=== PATIENT | male | born 1970 | race Hispanic/Latino ===

== ENCOUNTER 2019-11-29 20:56 | Emergency (ER) | payer BC ==
[~2019-11-29] VITALS: Ht 177.8 cm; Wt 113.4 kg
[2019-11-29] MEDS ORDERED: MORPHINE SULFATE INJ 4 MG/ML INJ 1ML IV STA (21:08)
[2019-11-29] MEDS ORDERED: ONDANSETRON HCL INJ 2MG/ML 2ML 2 MG/ML VIAL IV ONE (21:15)
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
[2019-11-29] MEDS ORDERED: MUPIROCIN 2% OINT 22 GM TUBE TOP ONE (21:45)
--- NOTE | 2019-11-29 21:59 | Diagnostic Imaging Report ---
X-ray right elbow 3 views HISTORY: Pain. COMPARISON: None available. FINDINGS: Bones: No acute displaced fracture. Questionable focal nondisplaced cortical fracture of the lateral humeral condyle although this could be a calcified enthesophyte. Joints: The joint spaces are well-maintained. Soft tissues: Soft tissue swelling along the lateral and dorsal elbow and proximal forearm. IMPRESSION: Soft tissue swelling along the lateral and dorsal elbow and proximal forearm. Olecranon bursitis is possible. Questionable focal nondisplaced cortical fracture of the lateral humeral condyle although this could be a calcified enthesophyte. Signed by: Wayne Longoria DO on 11/29/2019 9:56 PM
[2019-11-29] MEDS ORDERED: IBUPROFEN600 MG PO (22:02)
[2019-11-29] MEDS ORDERED: TYLENOL # 31 EA PO (22:02)
--- NOTE | 2019-11-29 22:08 | Diagnostic Imaging Report ---
EXAMINATION: CXR 2 VIEW - HOPD INDICATION: Fall, pain COMPARISON: None FINDINGS: TUBES and LINES: None. LUNGS: Normal lung volumes. Lungs are clear. No consolidations. PLEURA: No pleural effusion or pneumothorax. HEART AND MEDIASTINUM: The cardiomediastinal silhouette is unremarkable. BONES AND SOFT TISSUES: Minimally displaced fractures of lateral aspects of right ribs 5-8. Degenerative changes. Soft tissues are unremarkable. UPPER ABDOMEN: No free air under the diaphragm. IMPRESSION: Minimally displaced fractures of lateral aspects of right ribs 5-8. Signed by: Wayne Longoria DO on 11/29/2019 10:05 PM
[2019-11-29] MEDS ORDERED: HYDROCODONE/APAP 5MG-325MG TAB ONE ×2 (22:12→22:17)
[2019-11-29] MEDS ORDERED: KETOROLAC TROMETHAMINE 60 MG/2 ML VIAL ONE (22:12)
[2019-11-29] MEDS ORDERED: BACITRACIN ZINC 0.9GM TP ONE (22:12)
[2019-11-29] MEDS ORDERED: ONDANSETRON HCL 4 MG ORAL DISINTEGRATING TAB ONE ×2 (22:12→22:17)
[2019-11-29] MEDS ORDERED: KETOROLAC TROMETHAMINE 30 MG/ML VIAL IM ONE (22:15)
[2019-11-29] MEDS ORDERED: HYDROCODONE/APAP 5MG-325MG TAB PO ONE (22:15)
[2019-11-29] MEDS ORDERED: ONDANSETRON HCL 4 MG ORAL DISINTEGRATING TAB PO ONE (22:15)
[2019-11-29] MEDS ORDERED: TETANUS/DIPHTHERIA TOX ADULT 0.5 ML SYR ONE (22:24)
[2019-11-29] MEDS ORDERED: TETANUS/DIPHTHERIA TOX ADULT 0.5 ML SYR IM ONE (22:30)
== END 2019-11-29 22:55 | disposition home or self-care (01) ==
LOC: FSED 20:56
DX: S22.31XA Fracture of one rib, right side, initial encounter for closed fracture (principal); S42.454A Nondisplaced fracture of lateral condyle of right humerus, initial encounter for closed fracture; S50.11XA Contusion of right forearm, initial encounter; V19.3XXA Pedal cyclist (driver) (passenger) injured in unspecified nontraffic accident, initial encounter; Y93.55 Activity, bike riding; Y92.488 Other paved roadways as the place of occurrence of the external cause
CPT/HCPCS: 29125; 71046; 73080; 80053; 85025; 90471; 90714; 99283; J1885; Q0162

== ENCOUNTER 2020-07-23 14:16 | Emergency (ER) | payer BC ==
[~2020-07-23] VITALS: Ht 177.8 cm; Wt 108.9 kg
[~2020-07-23 14:16] MED LIST: IBUPROFEN600 MG PO; TYLENOL # 31 EA PO
[2020-07-23] MEDS ORDERED: NITROGLYCERIN 2% OINT 1 GM PKT TOP ONE (14:45)
[2020-07-23] MEDS ORDERED: HYDRALAZINE HCL 20 MG/ML VIAL IV ONE (14:45)
[2020-07-23] MEDS ORDERED: ACETAMINOPHEN 325 MG TAB PO ONE (14:45)
[2020-07-23] MEDS ORDERED: FAMOTIDINE 20 MG/2 ML VIAL IV ONE ×2 (14:45→15:05)
[2020-07-23] MEDS ORDERED: ONDANSETRON HCL INJ 2MG/ML 2ML 2 MG/ML VIAL IV PRN (14:45)
[2020-07-23] MEDS ORDERED: ASPIRIN 81 MG CHEW TAB PO ONE (14:45)
[2020-07-23] MEDS ORDERED: LOSARTAN POTASS25 MG PO (14:53)
[2020-07-23] MEDS ORDERED: METOPROLOL SUCC50 MG PO (14:53)
[2020-07-23] MEDS ORDERED: OMEPRAZOLE20 M1 PO (14:53)
[2020-07-23] MEDS ORDERED: HYDRALAZINE HCL 20 MG/ML VIAL ONE (15:05)
[2020-07-23] MEDS ORDERED: NITROGLYCERIN 2% OINT 1 GM PKT ONE (15:05)
[2020-07-23] MEDS ORDERED: ACETAMINOPHEN 325 MG TAB ONE (15:05)
[2020-07-23] MEDS ORDERED: ASPIRIN 81 MG CHEW TAB ONE (15:05)
[2020-07-23 16:12] VITALS: BP 154/66
== END 2020-07-23 16:12 | disposition home or self-care (01) ==
LOC: FSED 14:44
DX: R07.89 Other chest pain (principal); I16.0 Hypertensive urgency; K21.9 Gastro-esophageal reflux disease without esophagitis; R94.31 Abnormal electrocardiogram [ECG] [EKG]
CPT/HCPCS: 71046; 80053; 82553; 84484; 85025; 93005; 96374; 96375; 99284; J0360

== ENCOUNTER 2022-02-05 08:05 | Inpatient (IN) | payer MEDICARE, OTHER ==
[~2022-02-05] VITALS: Ht 177.8 cm; Wt 108.9 kg
[~2022-02-05 08:05] MED LIST changes: +LOSARTAN POTASS25 MG PO; +METOPROLOL SUCC50 MG PO; +OMEPRAZOLE20 M1 PO
[2022-02-05 08:44] LABS: BASOPHILS # (AUTO) 0.1 (0.0-0.1); BASOPHILS % 0.9 % (0.0-1.0); EOSINOPHILS # (AUTO) 1.7 (0.0-0.4); EOSINOPHILS % 19.3 % (0.0-6.0); LYMPHOCYTES # (AUTO) 1.3 (1.0-3.2); LYMPHOCYTES % 14.5 % (18.0-39.1); MEAN CORPUSCULAR HGB CONC 33.3 g/dL (31-35); MEAN CORPUSCULAR VOLUME 104.9 fL (81-99); MONOCYTES # (AUTO) 1.3 (0.2-0.8); MONOCYTES % 14.2 % (4.4-11.3); NEUTROPHILS # (AUTO) 4.5 (2.1-6.9); NEUTROPHILS % 50.4 % (38.7-80.0); PLATELET COUNT 130 x10e3/uL (140-360); RED BLOOD COUNT 1.83 x10e6/uL (4.3-5.7); RED CELL DISTRIBUTION WIDTH 20.8 % (11.7-14.4)
[2022-02-05 09:00] LABS: HEMATOCRIT 19.2 % (38.2-49.6); HEMOGLOBIN 6.4 g/dL (14.0-18.0)
[2022-02-05 09:02] LABS: INR 1.29; PROTHROMBIN TIME 17.2 seconds (11.9-14.5)
[2022-02-05 09:03] LABS: PARTIAL THROMBOPLASTIN TIME 39.8 seconds (23.8-35.5)
[2022-02-05 09:09] LABS: ALBUMIN 2.4 g/dL (3.5-5.0); ALBUMIN/GLOBULIN RATIO 0.4 (0.8-2.0); ANION GAP 16.5 mmol/L (8-16); CALCIUM 8.6 mg/dL (8.4-10.2); CREATININE, SERUM 7.54 mg/dL (0.72-1.25); POTASSIUM 4.5 mmol/L (3.5-5.1)
[2022-02-05] MEDS ORDERED: ACETAMINOPHEN 325 MG TAB PO STA (09:12)
[2022-02-05] MEDS ORDERED: ONDANSETRON HCL INJ 2MG/ML 2ML 2 MG/ML VIAL IV PRN (09:45)
[2022-02-05 10:35] LABS: % IRON SATURATION 28 % (15-50); IRON 62 ug/dL (65-175); TOTAL IRON BINDING CAPACITY 225 ug/dL (261-478); TRANSFERRIN 161 mg/dL (174-364)
[2022-02-05 12:04] VITALS: BP 136/57
[2022-02-05 12:10] VITALS: BP 136/57
[2022-02-05 13:00] VITALS: BP 136/57
[2022-02-05 15:19] VITALS: BP 115/52
[2022-02-05 17:25] LABS: MEAN CORPUSCULAR HEMOGLOBIN 35.4 pg (28-32); MEAN CORPUSCULAR HGB CONC 34.3 g/dL (31-35); MEAN CORPUSCULAR VOLUME 103.4 fL (81-99); PLATELET COUNT 125 x10e3/uL (140-360); RED BLOOD COUNT 1.75 x10e6/uL (4.3-5.7); RED CELL DISTRIBUTION WIDTH 20.6 % (11.7-14.4)
[2022-02-05 17:46] LABS: HEMOGLOBIN 6.2 g/dL (14.0-18.0)
[2022-02-05 17:47] LABS: HEMATOCRIT 18.1 % (38.2-49.6)
[2022-02-05] MEDS ORDERED: SODIUM CHLORIDE 0.9% 250ML 500 ML ONE (18:27)
[2022-02-05] MEDS ORDERED: ERGOCALCIFEROL1 GM PO (18:33)
[2022-02-05] MEDS ORDERED: LACTULOSE20 GM/30 M PO (18:33)
[2022-02-05] MEDS ORDERED: MIDODRINE HCL5 MG PO (18:33)
[2022-02-05] MEDS ORDERED: DEXILANT60 MG PO (18:33)
[2022-02-05] MEDS ORDERED: RENAGEL800 MG PO (18:33)
[2022-02-05] MEDS ORDERED: XIFAXAN550 MG PO (18:33)
[2022-02-05 18:51] LABS: EOSINOPHILS % (MANUAL) 10 % (0-7); LYMPHOCYTES % (MANUAL) 12 % (19-48); MONOCYTES % (MANUAL) 4 % (3.4-9.0); NEUTROPHILS % (MANUAL) 72 % (40-74); RBC MORPHOLOGY COMMENT ABNORMAL
[2022-02-05 18:52] LABS: ANISOCYTOSIS SLIGHT; HYPOCHROMASIA SLIG; MICROCYTOSIS SLIG; PLATELET ESTIMATE ADEQUATE; PLATELET MORPHOLOGY COMMENT FEW LARGE; POLYCHROMASIA FEW; SMUDGE CELLS FEW; TARGET CELLS MODERATE; TOXIC GRANULATION SLIGHT
[2022-02-05 20:00] VITALS: BP 99/43
[2022-02-05 21:00] VITALS: BP 99/43
[2022-02-06] VITALS (8 sets, daily range): BP systolic 110–122; BP diastolic 46–60
[2022-02-06] MEDS ORDERED: PHYTONADIONE 10MG/ML 20 MG in SODIUM CHLORIDE 0.9% 100 ML IV ONE (00:15)
[2022-02-06] MEDS ORDERED: LACTULOSE10 GM PO (00:59)
[2022-02-06 06:06] LABS: BASOPHILS # (AUTO) 0.1 (0.0-0.1); BASOPHILS % 0.8 % (0.0-1.0); EOSINOPHILS # (AUTO) 1.1 (0.0-0.4); EOSINOPHILS % 15.5 % (0.0-6.0); HEMOGLOBIN 7.3 g/dL (14.0-18.0); LYMPHOCYTES # (AUTO) 1.2 (1.0-3.2); LYMPHOCYTES % 15.9 % (18.0-39.1); MEAN CORPUSCULAR HEMOGLOBIN 32.4 pg (28-32); MEAN CORPUSCULAR HGB CONC 33.2 g/dL (31-35); MEAN CORPUSCULAR VOLUME 97.8 fL (81-99); MONOCYTES % 13.5 % (4.4-11.3); NEUTROPHILS % 53.8 % (38.7-80.0); PLATELET COUNT 113 x10e3/uL (140-360); RED BLOOD COUNT 2.25 x10e6/uL (4.3-5.7); RED CELL DISTRIBUTION WIDTH 24.8 % (11.7-14.4)
[2022-02-06 06:28] LABS: ALBUMIN 2.3 g/dL (3.5-5.0); ALBUMIN/GLOBULIN RATIO 0.4 (0.8-2.0); ANION GAP 16.2 mmol/L (8-16); CALCIUM 8.4 mg/dL (8.4-10.2); CREATININE, SERUM 5.68 mg/dL (0.72-1.25); POTASSIUM 4.2 mmol/L (3.5-5.1)
[2022-02-06 06:50] LABS: FREE THYROXINE INDEX 1.4786 (1.4-3.8); THYROID STIMULATING HORMONE 7.911 uIU/mL (0.350-4.940)
[2022-02-06 07:24] LABS: ANISOCYTOSIS MODERATE; PLATELET ESTIMATE SLIGHTLY DECREASED; PLATELET MORPHOLOGY COMMENT NORMAL; RBC MORPHOLOGY COMMENT ABNORMAL
[2022-02-06] MEDS ORDERED: PANTOPRAZOLE SOD 40 MG TABEC PO SCH (09:00)
[2022-02-06] MEDS: RIFAXIMIN 550 MG TABLET PO SCH ×2 (09:00→16:37)
[2022-02-06] MEDS: DOCUSATE SODIUM 100 MG CAP PO SCH (09:00)
[2022-02-06] MEDS: SENNOSIDES 8.6 MG TAB PO SCH (09:00)
[2022-02-06] MEDS: LACTULOSE SYRUP 20 GM/30 ML UDC PO SCH ×3 (09:00→21:00)
[2022-02-06] MEDS: SEVELAMER CARBONATE 800 MG TAB PO SCH ×3 (09:00→21:02)
[2022-02-06] MEDS: MIDODRINE HCL 5 MG TABLET PO SCH (09:00)
[2022-02-06 09:29] LABS: HEMATOCRIT 23.9 % (38.2-49.6); HEMOGLOBIN 7.9 g/dL (14.0-18.0)
[2022-02-06] MEDS: IRON SUCROSE 100 MG in SODIUM CHLORIDE 0.9% 100 ML IV SCH (09:42)
[2022-02-06] MEDS ORDERED: ONDANSETRON HCL 4 MG ORAL DISINTEGRATING TAB PO PRN (10:00)
[2022-02-06] MEDS ORDERED: POVIDONE IODINE 0.05% 0.05 % ML PO ONE (13:14)
[2022-02-06] MEDS ORDERED: PROPOFOL IV EMULSION 10 MG/ML 20 ML VIAL ONE (13:14)
[2022-02-06] MEDS ORDERED: PHYTONADIONE 10 MG/ML AMP IV ONE ×3 (19:15→21:15)
[2022-02-06 21:00] LABS: HEMATOCRIT 26.6 % (38.2-49.6); HEMOGLOBIN 8.6 g/dL (14.0-18.0)
[2022-02-06] MEDS ORDERED: SODIUM CHLORIDE 0.9% 100 ML ONE (21:38)
[2022-02-07] VITALS (7 sets, daily range): BP systolic 105–143; BP diastolic 39–61
[2022-02-07 07:08] LABS: BASOPHILS # (AUTO) 0.1 (0.0-0.1); BASOPHILS % 0.9 % (0.0-1.0); EOSINOPHILS % 14.8 % (0.0-6.0); HEMATOCRIT 23.6 % (38.2-49.6); LYMPHOCYTES # (AUTO) 1.1 (1.0-3.2); LYMPHOCYTES % 16.7 % (18.0-39.1); MEAN CORPUSCULAR HEMOGLOBIN 32.7 pg (28-32); MEAN CORPUSCULAR HGB CONC 33.9 g/dL (31-35); MEAN CORPUSCULAR VOLUME 96.3 fL (81-99); MONOCYTES # (AUTO) 0.9 (0.2-0.8); MONOCYTES % 13.2 % (4.4-11.3); NEUTROPHILS # (AUTO) 3.5 (2.1-6.9); NEUTROPHILS % 53.9 % (38.7-80.0); PLATELET COUNT 125 x10e3/uL (140-360); RED BLOOD COUNT 2.45 x10e6/uL (4.3-5.7)
[2022-02-07] MEDS ORDERED: PANTOPRAZOLE SOD 40 MG TABEC PO SCH (07:30)
[2022-02-07 07:38] LABS: ALBUMIN 2.3 g/dL (3.5-5.0); ALBUMIN/GLOBULIN RATIO 0.4 (0.8-2.0); ANION GAP 18.4 mmol/L (8-16); CALCIUM 8.7 mg/dL (8.4-10.2); CREATININE, SERUM 6.57 mg/dL (0.72-1.25); MAGNESIUM 2.5 MG/DL (1.3-2.1); POTASSIUM 4.4 mmol/L (3.5-5.1)
[2022-02-07] MEDS: SENNOSIDES 8.6 MG TAB PO SCH (08:35)
[2022-02-07] MEDS: RIFAXIMIN 550 MG TABLET PO SCH ×2 (08:35→17:00)
[2022-02-07] MEDS: DOCUSATE SODIUM 100 MG CAP PO SCH (08:35)
[2022-02-07] MEDS: IRON SUCROSE 100 MG in SODIUM CHLORIDE 0.9% 100 ML IV SCH (08:36)
[2022-02-07] MEDS: SEVELAMER CARBONATE 800 MG TAB PO SCH ×3 (08:37→22:15)
[2022-02-07] MEDS: PROPRANOLOL HCL 10 MG TAB PO SCH ×2 (08:37→17:00)
[2022-02-07] MEDS: LACTULOSE SYRUP 20 GM/30 ML UDC PO SCH ×4 (08:37→21:00)
[2022-02-07] MEDS: MIDODRINE HCL 5 MG TABLET PO SCH (08:37)
[2022-02-07 09:23] LABS: HEMATOCRIT 25.1 % (38.2-49.6); HEMOGLOBIN 8.3 g/dL (14.0-18.0)
[2022-02-07] MEDS ORDERED: EPOETIN ALFA-EPBX 10,000 UNIT/ML VIAL SC SCH (12:15)
[2022-02-07] MEDS ORDERED: HEPARIN SOD (PORCINE) 1000 UNIT/ML 10ML MDV IM ONE (18:00)
[2022-02-07] MEDS ORDERED: SODIUM CHLORIDE 0.9% 1000ML 1,000 ML IV ONE (18:00)
[2022-02-07] MEDS ORDERED: HEPARIN SOD (PORCINE) 1000 UNIT/ML SDV ONE (18:09)
[2022-02-07] MEDS ORDERED: SODIUM CHLORIDE 0.9% 1000ML 2,000 ML ONE (18:10)
[2022-02-08] VITALS (7 sets, daily range): BP systolic 99–130; BP diastolic 40–66
[2022-02-08 06:54] LABS: BASOPHILS # (AUTO) 0.1 (0.0-0.1); BASOPHILS % 0.4 % (0.0-1.0); EOSINOPHILS # (AUTO) 0.5 (0.0-0.4); EOSINOPHILS % 2.2 % (0.0-6.0); LYMPHOCYTES # (AUTO) 0.5 (1.0-3.2); MEAN CORPUSCULAR HEMOGLOBIN 33.3 pg (28-32); MEAN CORPUSCULAR HGB CONC 34.8 g/dL (31-35); MEAN CORPUSCULAR VOLUME 95.8 fL (81-99); MONOCYTES # (AUTO) 1.5 (0.2-0.8); NEUTROPHILS # (AUTO) 21.7 (2.1-6.9); NEUTROPHILS % 87.5 % (38.7-80.0); PLATELET COUNT 123 x10e3/uL (140-360); RED CELL DISTRIBUTION WIDTH 24.3 % (11.7-14.4)
[2022-02-08 07:15] LABS: ALBUMIN 2.2 g/dL (3.5-5.0); ALBUMIN/GLOBULIN RATIO 0.5 (0.8-2.0); ANION GAP 16.7 mmol/L (8-16); CALCIUM 8.3 mg/dL (8.4-10.2); CREATININE, SERUM 5.46 mg/dL (0.72-1.25); POTASSIUM 3.7 mmol/L (3.5-5.1)
[2022-02-08] MEDS: SEVELAMER CARBONATE 800 MG TAB PO SCH ×3 (10:05→20:08)
[2022-02-08] MEDS: SENNOSIDES 8.6 MG TAB PO SCH (10:05)
[2022-02-08] MEDS: DOCUSATE SODIUM 100 MG CAP PO SCH (10:05)
[2022-02-08] MEDS: RIFAXIMIN 550 MG TABLET PO SCH ×2 (10:06→17:21)
[2022-02-08] MEDS: MIDODRINE HCL 5 MG TABLET PO SCH (10:06)
[2022-02-08] MEDS: IRON SUCROSE 100 MG in SODIUM CHLORIDE 0.9% 100 ML IV SCH (10:07)
[2022-02-08] MEDS: PROPRANOLOL HCL 10 MG TAB PO SCH ×2 (10:07→17:22)
[2022-02-08] MEDS: LACTULOSE SYRUP 20 GM/30 ML UDC PO SCH ×3 (10:10→20:08)
[2022-02-08] MEDS: METRONIDAZOLE 250MG/NS 50ML 50 ML IV SCH ×2 (14:00→20:09)
[2022-02-08] MEDS ORDERED: SODIUM CHLORIDE 0.9% 1000ML 1,000 ML IV ONE (14:45)
[2022-02-08 16:11] LABS: BASOPHILS # (AUTO) 0.1 (0.0-0.1); BASOPHILS % 0.3 % (0.0-1.0); EOSINOPHILS % 0.2 % (0.0-6.0); HEMATOCRIT 23.8 % (38.2-49.6); LYMPHOCYTES # (AUTO) 0.8 (1.0-3.2); LYMPHOCYTES % 3.3 % (18.0-39.1); MEAN CORPUSCULAR HEMOGLOBIN 33.3 pg (28-32); MEAN CORPUSCULAR HGB CONC 33.6 g/dL (31-35); MEAN CORPUSCULAR VOLUME 99.2 fL (81-99); MONOCYTES # (AUTO) 1.3 (0.2-0.8); MONOCYTES % 5.4 % (4.4-11.3); NEUTROPHILS # (AUTO) 21.6 (2.1-6.9); NEUTROPHILS % 90.2 % (38.7-80.0); PLATELET COUNT 117 x10e3/uL (140-360); RED CELL DISTRIBUTION WIDTH 24.7 % (11.7-14.4)
[2022-02-09] VITALS (9 sets, daily range): BP systolic 108–149; BP diastolic 44–88
[2022-02-09] MEDS: METRONIDAZOLE 250MG/NS 50ML 50 ML IV SCH ×3 (05:13→20:00)
[2022-02-09 06:44] LABS: BASOPHILS # (AUTO) 0.1 (0.0-0.1); BASOPHILS % 0.3 % (0.0-1.0); EOSINOPHILS # (AUTO) 0.3 (0.0-0.4); EOSINOPHILS % 2.1 % (0.0-6.0); HEMATOCRIT 23.3 % (38.2-49.6); HEMOGLOBIN 7.7 g/dL (14.0-18.0); LYMPHOCYTES # (AUTO) 1.4 (1.0-3.2); LYMPHOCYTES % 8.9 % (18.0-39.1); MEAN CORPUSCULAR HEMOGLOBIN 33.2 pg (28-32); MEAN CORPUSCULAR VOLUME 100.4 fL (81-99); MONOCYTES # (AUTO) 1.2 (0.2-0.8); MONOCYTES % 7.8 % (4.4-11.3); NEUTROPHILS # (AUTO) 12.2 (2.1-6.9); NEUTROPHILS % 80.4 % (38.7-80.0); PLATELET COUNT 113 x10e3/uL (140-360); RED BLOOD COUNT 2.32 x10e6/uL (4.3-5.7); RED CELL DISTRIBUTION WIDTH 24.7 % (11.7-14.4)
[2022-02-09 07:05] LABS: ALBUMIN/GLOBULIN RATIO 0.4 (0.8-2.0); CALCIUM 8.4 mg/dL (8.4-10.2); CREATININE, SERUM 6.62 mg/dL (0.72-1.25)
[2022-02-09] MEDS ORDERED: SODIUM CHLORIDE 0.9% 100 ML ONE (07:45)
[2022-02-09] MEDS ORDERED: SODIUM CHLORIDE 0.9% 250ML 250 ML ONE (07:46)
[2022-02-09] MEDS: SEVELAMER CARBONATE 800 MG TAB PO SCH ×3 (08:04→21:00)
[2022-02-09] MEDS: DOCUSATE SODIUM 100 MG CAP PO SCH (08:04)
[2022-02-09] MEDS: RIFAXIMIN 550 MG TABLET PO SCH ×2 (08:04→16:31)
[2022-02-09] MEDS: MIDODRINE HCL 5 MG TABLET PO SCH (08:04)
[2022-02-09] MEDS: SENNOSIDES 8.6 MG TAB PO SCH (08:04)
[2022-02-09] MEDS: LACTULOSE SYRUP 20 GM/30 ML UDC PO SCH ×3 (08:04→21:00)
[2022-02-09] MEDS: PROPRANOLOL HCL 10 MG TAB PO SCH ×2 (08:06→16:32)
[2022-02-09 08:08] LABS: PLATELET ESTIMATE SLIGHTLY DECREASED
[2022-02-09 08:09] LABS: ANISOCYTOSIS SLIGHT; PLATELET MORPHOLOGY COMMENT NORMAL; RBC MORPHOLOGY COMMENT NORMAL
[2022-02-09] MEDS: IRON SUCROSE 100 MG in SODIUM CHLORIDE 0.9% 100 ML IV SCH (09:43)
[2022-02-09] MEDS ORDERED: ALBUMIN 25% 12.5GM 50ML 50 ML IV ONE (11:47)
[2022-02-09] MEDS ORDERED: SODIUM CHLORIDE 0.9% 1000ML 2,000 ML ONE (15:14)
[2022-02-09 15:21] LABS: BODY FLUID TYPE PERITONEAL
[2022-02-09 15:22] LABS: BODY FLUID APPEARANCE CLOUDY; BODY FLUID COLOR YELLOW
[2022-02-09 15:40] LABS: RBC,BODY FLUID < 2000 cells/uL; WBC,BODY FLUID 176 cells/uL
[2022-02-09 16:12] LABS: LYMPHOCYTES,BODY FLUID 70 %; MONO/MACROPHG,BODY FLUID 9 %; NEUTROPHILS,BODY FLUID 9 %; OTHER CELLS,BODY FLUID 12 %
[2022-02-09] MEDS ORDERED: HEPARIN SOD (PORCINE) 5,000 UNIT/ML VIAL ONE (18:17)
[2022-02-09] MEDS ORDERED: HEPARIN SOD (PORCINE) 1000 UNIT/ML SDV ONE (18:20)
[2022-02-10 00:47] VITALS: BP 115/48
[2022-02-10] MEDS: METRONIDAZOLE 250MG/NS 50ML 50 ML IV SCH (04:00)
[2022-02-10 06:13] LABS: BASOPHILS # (AUTO) 0.1 (0.0-0.1); BASOPHILS % 0.7 % (0.0-1.0); EOSINOPHILS # (AUTO) 0.6 (0.0-0.4); EOSINOPHILS % 8.6 % (0.0-6.0); HEMATOCRIT 25.5 % (38.2-49.6); HEMOGLOBIN 8.3 g/dL (14.0-18.0); LYMPHOCYTES # (AUTO) 1.4 (1.0-3.2); LYMPHOCYTES % 19.4 % (18.0-39.1); MEAN CORPUSCULAR HEMOGLOBIN 32.8 pg (28-32); MEAN CORPUSCULAR HGB CONC 32.5 g/dL (31-35); MEAN CORPUSCULAR VOLUME 100.8 fL (81-99); MONOCYTES # (AUTO) 1.1 (0.2-0.8); MONOCYTES % 14.6 % (4.4-11.3); NEUTROPHILS # (AUTO) 4.2 (2.1-6.9); NEUTROPHILS % 56.3 % (38.7-80.0); PLATELET COUNT 105 x10e3/uL (140-360); RED BLOOD COUNT 2.53 x10e6/uL (4.3-5.7); RED CELL DISTRIBUTION WIDTH 24.1 % (11.7-14.4)
[2022-02-10 06:51] LABS: MAGNESIUM 2.3 MG/DL (1.3-2.1)
[2022-02-10 07:00] LABS: FERRITIN 1471.95 ng/mL (21.81-274.66)
[2022-02-10 08:03] VITALS: BP 123/64
[2022-02-10 08:15] VITALS: BP 123/64
[2022-02-10] MEDS: LACTULOSE SYRUP 20 GM/30 ML UDC PO SCH (08:22)
[2022-02-10] MEDS: MIDODRINE HCL 5 MG TABLET PO SCH (08:22)
[2022-02-10] MEDS: SENNOSIDES 8.6 MG TAB PO SCH (08:23)
[2022-02-10] MEDS: PROPRANOLOL HCL 10 MG TAB PO SCH (08:23)
[2022-02-10] MEDS: DOCUSATE SODIUM 100 MG CAP PO SCH (08:23)
[2022-02-10] MEDS: SEVELAMER CARBONATE 800 MG TAB PO SCH (08:23)
[2022-02-10] MEDS: RIFAXIMIN 550 MG TABLET PO SCH (08:23)
[2022-02-10] MEDS ORDERED: METRONIDAZOLE500 MG PO (08:48)
[2022-02-10] MEDS ORDERED: LACTULOSE10 GM PO (08:48)
[2022-02-10] MEDS ORDERED: PROTONIX20 MG PO (08:48)
[2022-02-10] MEDS ORDERED: CIPRO250 MG PO (08:48)
[2022-02-10] MEDS ORDERED: INDERAL10 MG PO (08:48)
[2022-02-10] MEDS: IRON SUCROSE 100 MG in SODIUM CHLORIDE 0.9% 100 ML IV SCH (10:00)
== END 2022-02-10 11:35 | disposition home or self-care (01) | DRG 432 ==
LOC: ER 08:10 → ERHOLD 09:38 → MED/SURG2 11:32 → OBSVTOIN 02-06 10:22
PROVIDERS: ADMIT Internal Medicine; ATTEND Internal Medicine
PROC: 30233N1 Transfusion of Nonautologous Red Blood Cells into Peripheral Vein, Percutaneous Approach (ICD-10-PCS; principal; 2022-02-05)
PROC: 5A1D70Z Performance of Urinary Filtration, Intermittent, Less than 6 Hours Per Day (ICD-10-PCS; 2022-02-05)
PROC: 06L38CZ Occlusion of Esophageal Vein with Extraluminal Device, Via Natural or Artificial Opening Endoscopic (ICD-10-PCS; 2022-02-06)
PROC: 0W9G3ZZ Drainage of Peritoneal Cavity, Percutaneous Approach (ICD-10-PCS; 2022-02-09)
DX: K70.31 Alcoholic cirrhosis of liver with ascites (principal); I85.11 Secondary esophageal varices with bleeding; N18.6 End stage renal disease; K76.6 Portal hypertension; I12.0 Hypertensive chronic kidney disease with stage 5 chronic kidney disease or end stage renal disease; D62 Acute posthemorrhagic anemia; F10.21 Alcohol dependence, in remission; E66.9 Obesity, unspecified; Z99.2 Dependence on renal dialysis; Z68.34 Body mass index [BMI] 34.0-34.9, adult; Z88.5 Allergy status to narcotic agent; K31.89 Other diseases of stomach and duodenum; D63.1 Anemia in chronic kidney disease; K72.90 Hepatic failure, unspecified without coma; D50.9 Iron deficiency anemia, unspecified; K44.9 Diaphragmatic hernia without obstruction or gangrene; Z20.822 Contact with and (suspected) exposure to COVID-19; R60.0 Localized edema
CPT/HCPCS: 36415; 43239; 43255; 49083; 71045; 76700; 80053; 82040; 82140; 82270; 82607; 82728; 82746; 82945; 83010; 83036; 83540; 83605; 83615; 83690; 83735; 83880; 84157; 84436; 84443; 84466; 84479; 84484; 85007; 85014; 85018; 85025; 85027; 85610; 85730; 86704; 86706; 86803; 86850; 86900; 86920; 87040; 87070; 87205; 87340; 89051; 90962; 93005; 93306; 94760; 99284; C1729; G0378; J0696; J1644; J1756; J3430; J7030; J7050; P9016